=== PATIENT | female | born 1970 | race American Indian/Alaskan Native ===

== ENCOUNTER 2016-12-16 13:57 | Emergency (ER) | payer OTHER ==
[2016-12-16 15:17] VITALS: BP 121/76
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
[2016-12-16] MEDS ORDERED: MOTRIN PO ONE (17:41)
[2016-12-16] MEDS ORDERED: THERMAZENE 50 GRAM TP ONE (18:00)
== END 2016-12-16 17:56 | disposition home or self-care (01) ==
LOC: ED 13:57
DX: T21.11XA Burn of first degree of chest wall, initial encounter (principal); I10 Essential (primary) hypertension; X10.0XXA Contact with hot drinks, initial encounter; Y93.89 Activity, other specified; Y92.89 Other specified places as the place of occurrence of the external cause; Y99.8 Other external cause status